=== PATIENT | female | born 1955 | race Two or more races ===

== ENCOUNTER 2023-04-25 09:44 | Day surgery (SDC) | payer OTHER ==
[2023-04-20 11:34] VITALS: BMI 22.6
[2023-04-25 12:42] VITALS: RESP 18; TEMP 97
[2023-04-25 12:50] VITALS: BP 122/70; PULSE 72
== END 2023-04-25 13:32 | disposition home or self-care (01) ==
LOC: FASU-ENDO 09:44
PROVIDERS: ATTEND Internal Medicine Gastroenterology
PROC: 0DB98ZX Excision of Duodenum, Via Natural or Artificial Opening Endoscopic, Diagnostic (ICD-10-PCS; 2023-04-25)
PROC: 0DB68ZX Excision of Stomach, Via Natural or Artificial Opening Endoscopic, Diagnostic (ICD-10-PCS; 2023-04-25)
PROC: 0DB28ZX Excision of Middle Esophagus, Via Natural or Artificial Opening Endoscopic, Diagnostic (ICD-10-PCS; 2023-04-25)
PROC: 0DJD8ZZ Inspection of Lower Intestinal Tract, Via Natural or Artificial Opening Endoscopic (ICD-10-PCS; principal; 2023-04-25 12:01)
DX: Z12.11 Encounter for screening for malignant neoplasm of colon (principal); K64.0 First degree hemorrhoids; K22.81 Esophageal polyp; K29.50 Unspecified chronic gastritis without bleeding; R13.10 Dysphagia, unspecified
CPT/HCPCS: 43239; G0121; 88305-TC; 88342-TC